=== PATIENT | male | born 1980 | race Caucasian/White ===

== ENCOUNTER 2021-12-07 07:12 | Emergency (ER) | payer OTHER ==
[2021-12-07 07:29] VITALS: BP 131/79; PULSE 88; TEMP 98.6; BMI 25.8
[2021-12-07] MEDS ORDERED: DIPHTH,PERTUSS(ACELL),TET 0.5 ML DISP.SYRIN IM ONE ×2 (08:02→09:44)
[2021-12-07] MEDS ORDERED: CIPROFLOXACIN 500 MG TABLET (RESTRICTED TO ID) PO ONE (09:25)
[2021-12-07] MEDS ORDERED: levoFLOXacin 750 MG TABLET PO SCH (10:00)
== END 2021-12-07 09:59 | disposition home or self-care (01) ==
LOC: JER 07:12
PROC: 3E0234Z Introduction of Serum, Toxoid and Vaccine into Muscle, Percutaneous Approach (ICD-10-PCS; principal; 2021-12-07)
DX: S91.332A Puncture wound without foreign body, left foot, initial encounter (principal); W25.XXXA Contact with sharp glass, initial encounter
CPT/HCPCS: 73630-TC-LT; 90471; 90715; 99283-25

== ENCOUNTER 2022-06-20 11:28 | Emergency (ER) | payer OTHER ==
[2022-06-20 11:32] VITALS: BP 127/89; PULSE 81; RESP 18; TEMP 100; BMI 23.6
== END 2022-06-20 13:10 | disposition home or self-care (01) ==
LOC: JER 11:28
DX: R05.1 Acute cough (principal); R50.9 Fever, unspecified; R09.81 Nasal congestion; J02.9 Acute pharyngitis, unspecified
CPT/HCPCS: 0241U-QW; 99283-25

== ENCOUNTER → 2022-07-16 | Emergency (ER) | payer OTHER ==
[~2022-07-16] MED LIST: IBUPROFEN 600 MG TABLET (FP) PO ONE
[2022-07-16 15:24] VITALS: BP 158/53; PULSE 73; RESP 15; TEMP 98.5; BMI 20.9
== END ==
LOC: JERFT 15:08
DX: J02.9 Acute pharyngitis, unspecified (principal)
CPT/HCPCS: 99281-25

== ENCOUNTER 2022-07-18 17:33 | Emergency (ER) | payer OTHER ==
[2022-07-18 17:41] VITALS: RESP 18; BMI 20.9
[2022-07-18] MEDS ORDERED: IBUPROFEN 600 MG TABLET (FP) PO ONE (18:06)
[2022-07-18 19:03] VITALS: BP 134/87; PULSE 95; TEMP 99
== END 2022-07-18 19:08 | disposition home or self-care (01) ==
LOC: JERFT 17:33 → JER 17:33 → JERFT 19:08
DX: J03.90 Acute tonsillitis, unspecified (principal)
CPT/HCPCS: 0241U-QW; 87651; 99283-25